=== PATIENT | male | born 1950 | race Caucasian/White ===

== ENCOUNTER 2018-03-24 11:44 | Emergency (ER) | payer MEDICARE, OTHER, SELFPAY ==
[2018-03-24] VITALS (9 sets, daily range): BP systolic 128–142; BP diastolic 74–110; PULSE 68–89; RESP 12–30; TEMP 35.9; O2SAT 97–100; BMI 24.4
[2018-03-24] MEDS: Etomidate 20 MG/10 ML Vial IV (11:48)
[2018-03-24] MEDS: Succinylcholine Chloride 200 MG/10 ML Vial 120 MG IV (11:48)
[2018-03-24 11:50] LABS: Bedside Glucose 129 mg/dL (70-110)
--- NOTE | 2018-03-24 12:03 | ED.VISSUMM ---
- ER Visit Summary Date of Service: 03/24/18 Chief Complaint: Decreased mental status History of Present Illness: The patient is a 67 M drank 12-14 beers last night. states in the middle night he often gets up and goes the bathroom she thinks he may have fell last night. Squad was called and in route the patient became unresponsive is been this way for about 20 minutes. denies any complaint of chest pain, shortness of breath. She does state that he had a headache earlier today. He has had no nausea or vomiting. No fever or melena. He has never had an episode like this before. He does drink alcohol but she denies any drug use. Physical Examination: Older male completely unresponsive being bagged. Vital signs initial blood pressure 142/75. He is afebrile. His O2 sats were 97% or greater being bagged. H EENT exam pupils are pinpoint bilaterally. I do not see any obvious signs of trauma to his face or scalp. He has lower teeth but no upper dentition. Trachea midline. A c-collar be applied. Lungs coarse bilaterally. Heart regular rhythm rate about 70 no murmur. Chest wall nontender no ecchymosis or bruising no crepitance. Abdomen is soft and nondistended. No signs of trauma. No peritoneal signs. Pelvic girdle intact. He does move some of his extremities prior to intubation. There are no gross bony deformities. Neurologically he is greatly diminished. He does not follow any commands. Pupils are pinpoint bilaterally. Test Results: CAT scan of his brain without contrast shows a large subarachnoid hemorrhage with intraparenchymal and interventricular blood. There is no shift. There is no obvious skull fracture. This may be secondary to a nontraumatic cause. And will need further evaluation. CT C-spine is pending. Chest x-ray shows the patient intubated with the ET tube 3 cm or so above the radha. Both lung hines are well aerated. There are no obvious rib fractures. CBC shows a white count of 17. H&H of 14 and 42. Normal platelets. Electrolytes show a chloride of 108 CO2 of 18 and gap of 13 and normal creatinine. PT/INR normal. Troponin is normal. Tox screen is pending alcohol level is normal at 40. EKG is a sinus rhythm rate is 70. 1 no acute signs of [place] or ischemia. Emergency Department Course and Treatment: Patient was emergently intubated on the first attempt with a 7/2 ET tube at about 22 of the lips. Bilateral breath sounds. Prior to being intubated he was given 120 of succinylcholine and 20 of etomidate. He will be placed on a propofol drip for sedation. Treatment Plan: I spoke to the family who preferred transfer to [facility]. I spoke to both [facility] ER and the on-call neurosurgeon. The neurosurgeon wanted me to give the patient IV mannitol and load him with IV Keppra which is been ordered. Patient will be set to [facility] as soon as we have the squad available. Disposition: Admission Impression: Acute decreased mental status secondary to large subarachnoid hemorrhage of uncertain etiology ET intubation by ER physician This note was generated with [employer] dictation software. It may contain incorrect words, spelling, and punctuation that were not noted in review of the chart prior to signing ED Disposition - Plan for ED Patient: Chief Complaint: Fall
[2018-03-24] MEDS: Propofol 10MG/Ml 1,000 MG/100 ML Bottle 2.449 MG CONT INF (12:04)
[2018-03-24 12:09] LABS: Absolute Lymphocyte Count 2.86 X10^3/ul (0.83-4.51); Absolute Neutrophil Count 13.4 X10^3/uL (2.0-7.7); Basophil# 0.03 X10^3/uL; Basophil% 0.2 % (0-1); Hematocrit 42.1 % (40-54); Hemoglobin 14.2 g/dl (13.0-16.5); Lymphocyte # 2.86 X10^3/ul (4.0); Lymphocyte % 16.6 % (19-41); Mean Corp Hgb Conc 33.7 g/gl (32-36); Mean Corpuscular Hgb 31.1 pg (27.0-32.0); Mean Corpuscular Volume 92.1 fL (80-94); Monocyte# 0.86 X10^3/uL; Neutrophil # 13.39 X10^3/uL (2.7-7.7); Neutrophil % 77.9 % (47-70); POSITIVE COUNT NO; POSITIVE DIFFERENTIAL NO; POSITIVE MORPHOLOGY NO; Platelet Count 319 K/mm3 (150-450); RBC Distribution Width CV 13.1 % (11.6-14.6); RBC Distribution Width SD 43.6 fl (35.1-43.9); Red Blood Count 4.57 M/mm3 (4.6-6.2); White Blood Count 17.2 K/mm3 (4.4-11.0)
--- NOTE | 2018-03-24 12:09 | ED.DCSUM_ITS ---
- ER Visit Summary Date of Service: 03/24/18 Chief Complaint: Decreased mental status History of Present Illness: The patient is a 67 M drank 12-14 beers last night. states in the middle night he often gets up and goes the bathroom she thinks he may have fell last night. Squad was called and in route the patient became unresponsive is been this way for about 20 minutes. denies any complaint of chest pain, shortness of breath. She does state that he had a headache earlier today. He has had no nausea or vomiting. No fever or melena. He has never had an episode like this before. He does drink alcohol but she denies any drug use. Physical Examination: Older male completely unresponsive being bagged. Vital signs initial blood pressure 142/75. He is afebrile. His O2 sats were 97% or greater being bagged. H EENT exam pupils are pinpoint bilaterally. I do not see any obvious signs of trauma to his face or scalp. He has lower teeth but no upper dentition. Trachea midline. A c-collar be applied. Lungs coarse bilaterally. Heart regular rhythm rate about 70 no murmur. Chest wall nontender no ecchymosis or bruising no crepitance. Abdomen is soft and nondistended. No signs of trauma. No peritoneal signs. Pelvic girdle intact. He does move some of his extremities prior to intubation. There are no gross bony deformities. Neurologically he is greatly diminished. He does not follow any commands. Pupils are pinpoint bilaterally. Test Results: CAT scan of his brain without contrast shows a large subarachnoid hemorrhage with intraparenchymal and interventricular blood. There is no shift. There is no obvious skull fracture. This may be secondary to a nontraumatic cause. And will need further evaluation. CT C-spine is pending. Chest x-ray shows the patient intubated with the ET tube 3 cm or so above the radha. Both lung hines are well aerated. There are no obvious rib fractures. CBC shows a white count of 17. H&H of 14 and 42. Normal platelets. Electrolytes show a chloride of 108 CO2 of 18 and gap of 13 and normal creatinine. PT/INR normal. Troponin is normal. Tox screen is pending alcohol level is normal at 40. EKG is a sinus rhythm rate is 70. 1 no acute signs of [place] or ischemia. Emergency Department Course and Treatment: Patient was emergently intubated on the first attempt with a 7/2 ET tube at about 22 of the lips. Bilateral breath sounds. Prior to being intubated he was given 120 of succinylcholine and 20 of etomidate. He will be placed on a propofol drip for sedation. Treatment Plan: I spoke to the family who preferred transfer to [facility]. I spoke to both [facility] ER and the on-call neurosurgeon. The neurosurgeon wanted me to give the patient IV mannitol and load him with IV Keppra which is been ordered. Patient will be set to [facility] as soon as we have the squad available. Disposition: Admission Impression: Acute decreased mental status secondary to large subarachnoid hemorrhage of uncertain etiology ET intubation by ER physician This note was generated with [employer] dictation software. It may contain incorrect words, spelling, and punctuation that were not noted in review of the chart prior to signing ED Disposition - Plan for ED Patient: Chief Complaint: Fall
[2018-03-24 12:12] LABS: Prothrombin Time (Protime)PT. 12.8 SECONDS (11.7-14.9)
[2018-03-24 12:21] LABS: Allen Test POS; Base Excess -7 mmol/L (-2 to +2); Bicarbonate 20.3 mmol/L (22-26); Blood Gas Specimen Type ART; FI02 100; Mode A-C; O2 Delivery Device Vent; PEEP 5; PO2 472 mmHG (75-100); RR 12; SITE R Brachial; SO2 100 % (95-99); Time Given 1212; Total Carbon Dioxide 22 mmol/L; Vt 500; pCO2 49.6 mmHg (35-45); pH 7.22 (7.35-7.45)
[2018-03-24 12:23] LABS: Anion Gap 13 (5-15); BUN 9 mg/dL (7-18); Calcium,Total 8.4 mg/dL (8.5-10.1); Chloride 108 mmol/L (98-107); EST Glomerular Filtration Rate 90 mL/min (>60); Est Glom Filt Rate - Afr Amer 109 mL/min (>60); Estimated Creatinine Clearance 89.81 ml/min; Glucose 134 mg/dL (74-106); Potassium 4.1 mmol/L (3.5-5.1); Sodium Level 139 mmol/L (136-145)
[2018-03-24] MEDS: 0.9% Normal Saline 1,000 ML 999 ML IV (12:32)
[2018-03-24 12:45] LABS: Bacteria 0 SEEN /hpf (None Seen); Mucous, Urine 0 SEEN /hpf (<or=2+); Squamous Epithelial Cells - UA 0 SEEN /hpf (0-5); White Blood Cells 0 SEEN /hpf (0-5)
[2018-03-24 12:49] LABS: Color, Urine Yellow (Yellow); Glucose, Dipstick Normal (Normal); Ketone-Dipstick Negative (Negative); Leukocyte Esterase-Dipstick Negative /ul (Negative); Nitrite-Dipstick Negative (Negative); Occult Blood-Urine 250 /ul (Negative); Protein-Dipstick Negative (Negative); Urine Bilirubin Dipstick Negative (Negative); Urine Clarity Clear (Clear); Urine Urobilinogen Normal (Normal)
[2018-03-24] MEDS: levETIRAcetam IV 1,000 MG/100 ML BAG 400 MG IV (13:10)
[2018-03-24 13:31] LABS: Red Blood Cells-Urine 0-5 SEEN /hpf (0-5)
[2018-03-24 14:45] LABS: Amphetamine Urine VISTA NEGATIVE (<1000 ng/mL); Barbiturate Urine VISTA NEGATIVE (< 200 ng/mL); Benzodiazepine Urine VISTA NEGATIVE (< 200 ng/mL); Cocaine Urine VISTA NEGATIVE (< 300 ng/mL); Ecstacy Urine VISTA NEGATIVE (< 500 ng/mL); Methadone Urine VISTA NEGATIVE (< 300 ng/mL); PCP Urine VISTA NEGATIVE (< 25 ng/mL); THC Urine VISTA NEGATIVE (< 50 ng/mL); Vista UDS pH Range 6
== END 2018-03-24 14:07 | disposition short-term general hospital (02) ==
PROVIDERS: Emergency Provider Emergency Medicine
DX: I60.8 Other nontraumatic subarachnoid hemorrhage (principal); R41.82 Altered mental status, unspecified; Z72.0 Tobacco use
CPT/HCPCS: 31500; 31720; 36600; 51702; 70450; 71045; 72125; 80048; 80307; 80320; 81001; 82803; 82962; 84484; 85025; 85610; 93005; 94002; 96365; 96368; 96375; 99251; 99285; J7030; A4216; G0463; G0480; J0330